=== PATIENT | male | born 1980 | race African-American/Black ===

== ENCOUNTER 2021-09-05 17:39 | Emergency (ER) | payer BC, MEDICARE ==
[2021-09-05 20:22] LABS: #Eosinphils 0.1 10x3/uL (0.0-0.5); #Monocytes 1.7 10x3/uL (0.0-1.1); #Neutrophils 8.4 10x3/uL (1.5-8.4); %Basophils 0.3 % (0.0-2.0); %Eosinophils 1.1 % (0.0-6.0); %Lymphocytes 9.7 % (18.0-47.0); %Monocytes 14.9 % (0.0-10.0); %Neutrophils 73.7 % (40.0-75.0); Mean Corpuscular HGB CONC 33.6 g/dL (32.0-36.0); Mean Corpuscular Hemoglobin 30.4 pg (27.0-33.0); Mean Corpuscular Volume 90.4 fl (81.2-95.1); Mean Platelet Volume 10.4 fl (7.4-10.4); Platelet Count 164 10x3/uL (150-450); RBC Distribution Width 12.3 % (11.5-14.5); Red Blood Cell (RBC) Count 3.95 10x6/uL (4.32-5.72); White Blood Cell (WBC) Count 11.4 10x3/uL (3.5-10.5)
[2021-09-05 20:36] LABS: ALT (SGPT) 17 U/L (8-55); AST (SGOT) 15 U/L (5-34); Albumin 4.2 g/dL (3.5-5.0); Alkaline Phosphatase 48 U/L (40-110); Anion Gap 15 mmol/L (10-20); BUN (Urea Nitrogen) 18 mg/dL (8.9-20.6); Calc. Creatinine Clearance 0 mL/min (70-130); Calcium 9.6 mg/dL (7.8-10.44); Carbon Dioxide 26 mmol/L (22-29); Chloride 100 mmol/L (98-107); Globulin 2.7 g/dL (2.4-3.5); Glucose 108 mg/dL (70-105); Protein, Total 6.9 g/dL (6.0-8.3); Sodium 138 mmol/L (136-145)
[2021-09-05 20:41] LABS: Potassium 2.9 mmol/L (3.5-5.1)
[2021-09-05] MEDS ORDERED: Cefepime 2 GM VIAL ONE (20:53)
[2021-09-05] MEDS ORDERED: Potassium Chloride 20 MEQ TAB ONE (21:20)
[2021-09-05] MEDS ORDERED: VANCOMYCIN 2 GRAM/400 ML BAG 2 GM in Premix Bag 1 BAG IVPB SCH (22:30)
[2021-09-05] MEDS ORDERED: Acetaminophen 325 MG TAB ONE (23:04)
[2021-09-05] MEDS ORDERED: NIFEdipine XL 60 MG TAB PO SCH (23:15)
== END 2021-09-06 00:13 | disposition short-term general hospital (02) ==
LOC: CSHERS 17:39
DX: E87.6 Hypokalemia (principal); R50.81 Fever presenting with conditions classified elsewhere; I10 Essential (primary) hypertension; Z79.899 Other long term (current) drug therapy; Z99.2 Dependence on renal dialysis
CPT/HCPCS: 80053; 83605; 85025; 87040; 96365; 96366; 96367; J0692; J3370